=== PATIENT | female | born 1985 | race Caucasian/White ===

== ENCOUNTER 2019-02-16 08:52 | Day surgery (SDC) | payer OTHER ==
[~2019-02-16 08:52] MED LIST: Clindamycin Phosphate in D5W 600 MG in Premix Bag 50 BAG IV ONE; Lactated Ringers 1,000 ML IV SCH; Sodium Chloride 0.9% 10 ML SDV IV PRN; Sodium Chloride 0.9% 10 ML Syringe FLUSH PRN; Sodium Chloride 0.9% 2.5 ML Syringe FLUSH PRN
[2019-02-16] MEDS ORDERED: fentaNYL 100 MCG/2 ML SDV ONE (08:54)
[2019-02-16] MEDS ORDERED: Propofol 200 MG/20 ML SDV ONE ×2 (08:54→13:30)
[2019-02-16] MEDS ORDERED: Midazolam 1 MG/ML 2 ML SDV ONE (08:54)
[2019-02-16] MEDS ORDERED: Lactated Ringers 1,000 ML IV SCH ×2 (09:30→10:15)
[2019-02-16] MEDS ORDERED: Clindamycin Phosphate in D5W 600 MG in Premix Bag 50 BAG IV ONE ×2 (09:30)
--- NOTE | 2019-02-16 10:41 | PCM.PREANE ---
Preanesthetic Assessment - Anesthesia/Transfusion/Family Hx Anesthesia History: Prior Anesthesia Without Reaction Family History of Anesthesia Reaction: No Transfusion History: No Prior Transfusion(s) Intubation History: Unknown - Review of Systems General: No Symptoms Pulmonary: No Symptoms Cardiovascular: No Symptoms Gastrointestinal: No Symptoms Neurological: No Symptoms Other: Reports: None - Physical Assessment O2 Sat by Pulse Oximetry: 94 Respiratory Rate: 16 Vital Signs: Last Vital Signs Temp 37.1 C 02/16/19 10:19 Pulse 75 02/16/19 10:19 Resp 16 02/16/19 10:19 BP 110/60 02/16/19 10:19 Pulse Ox 94 L 02/16/19 10:19 Height: 1.63 m Weight: 84.368 kg ASA Class: 2 Mental Status: Alert & Oriented x3 Airway Class: Mallampati = 2 Dentition: Reports: Normal Dentition Thyro-Mental Finger Breadths: 3 Mouth Opening Finger Breadths: 3 ROM/Head Extension: Full Lungs: Clear to Auscultation, Normal Respiratory Effort Cardiovascular: Regular Rate, Regular Rhythm - Lab Values: Laboratory Last Values Urine HCG, Qual NEGATIVE (NEGATIVE) 02/16/19 09:30 - Allergies Allergies/Adverse Reactions: Allergies Allergy/AdvReac Type Severity Reaction Status Date / Time adhesive tape Allergy Rash Verified 02/13/19 10:41 cephalexin [From Keflex] Allergy Hives Verified 02/13/19 10:41 kiwi Allergy Mouth Sores Verified 02/13/19 10:41 - Blood Blood Available: No - Anesthesia Plan Pre-Op Medication Ordered: None - Acknowledgements Anesthesia Type Planned: MAC Pt an Appropriate Candidate for the Planned Anesthesia: Yes Alternatives and Risks of Anesthesia Discussed w Pt/Guardian: Yes Pt/Guardian Understands and Agrees with Anesthesia Plan: Yes PreAnesthesia Questionnaire HEENT History: Reports: Other (See Below) Other HEENT History: wears glasses 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 Musculoskeletal History: Reports: Back Pain, Chronic, Fracture Other Musculoskeletal History: hx of fx ribs Psychiatric History: Reports: Depression Endocrine/Metabolic History: Reports: Obesity/BMI 30+ - Past Surgical History Female Surgical History: Reports: LEEP, Other (See Below) Other Female Surgeries/Procedures: Exploratory Laparoscopy - SUBSTANCE USE Smoking Status *Q: Current Every Day Smoker (about 1/2 ppd) Tobacco Use Within Last Twelve Months: Cigarettes Recreational Drug Use History: No - HOME MEDS Home Medications: Home Meds Acetaminophen [Tylenol Extra Strength] 1,000 mg PO Q6H PRN 02/13/19 [History] Lysine 1,000 mg PO ASDIRECTED PRN 02/13/19 [History] Noreth-Ethinyl Estradiol/Iron [Generess Fe] 1 tab PO DAILY 02/13/19 [History] Thrive 1 tab PO DAILY 02/13/19 [History] valACYclovir [Valtrex] 1,000 mg PO ASDIRECTED PRN 02/13/19 [History] traMADol [Ultram] 50 mg PO Q6H PRN 02/16/19 [History] - CURRENT (IN HOUSE) MEDS Current Meds: Current Medications Lactated Ringer's (Ringers, Lactated) 1,000 mls @ 125 mls/hr IV ASDIRECTED MIKE Last Admin: 02/16/19 09:50 Dose: 125 mls/hr Lactated Ringer's (Ringers, Lactated) 1,000 mls @ 125 mls/hr IV ASDIRECTED MIKE Sodium Chloride (Saline Flush) 10 ml FLUSH ASDIRECTED PRN PRN Reason: Keep Vein Open Sodium Chloride (Saline Flush) 2.5 ml FLUSH ASDIRECTED PRN PRN Reason: Keep Vein Open Sodium Chloride (Normal Saline) 10 ml IV ASDIRECTED PRN PRN Reason: IV Use Discontinued Medications Fentanyl (Sublimaze) Confirm Administered Dose 100 mcg .ROUTE .STK-MED ONE Stop: 02/16/19 08:55 Clindamycin Phosphate 600 mg/ (Premix) 50 mls @ 100 mls/hr IV ONETIME ONE Stop: 02/15/19 13:23 Lactated Ringer's (Ringers, Lactated) 1,000 mls @ 125 mls/hr IV ASDIRECTED MIKE Lidocaine HCl (Xylocaine-Mpf 1%) Confirm Administered Dose 5 mls @ as directed .ROUTE .STK-MED ONE Stop: 02/16/19 08:56 Clindamycin Phosphate 600 mg/ (Premix) 50 mls @ 100 mls/hr IV ONETIME ONE Stop: 02/16/19 09:59 Last Admin: 02/16/19 09:45 Dose: 100 mls/hr Midazolam HCl (Versed 1 Mg/Ml) Confirm Administered Dose 2 mg .ROUTE .STK-MED ONE Stop: 02/16/19 08:55 Propofol (Diprivan 20 Ml) Confirm Administered Dose 200 mg .ROUTE .STK-MED ONE Stop: 02/16/19 08:55
[2019-02-16] MEDS ORDERED: Bupivacaine 0.5% 10 ML SDV ONE (12:14)
[2019-02-16] MEDS ORDERED: Lidocaine 1% 20 ML MDV ONE (12:15)
[2019-02-16] MEDS ORDERED: Ondansetron 4 MG/2 ML SDV ONE (12:58)
--- NOTE | 2019-02-16 14:00 | PCM.OPNOTE ---
- General Post-Op/Procedure Note Date of Surgery/Procedure: 02/16/19 Operative Procedure(s): excision of right back mass Findings: Superficial mass measuring 2.2 x 1.5 x 1 cm. Deep mass measuring 2.75 x 2 x 1 cm. Pre Op Diagnosis: lipoma Post-Op Diagnosis: lipoma Anesthesia Technique: GINA Primary Surgeon: Tara Renee Secondary Surgeon: Renetta Fitzgerald Fluid Replacement, Intraop: 1,200 EBL in mLs: 5 Condition: Good
--- NOTE | 2019-02-16 14:11 | PCM.POSTAN ---
POST ANESTHESIA ASSESSMENT - MENTAL STATUS Mental Status: Alert, Oriented - RESPIRATORY Respiratory Status: Respiratory Rate WNL, Airway Patent, O2 Saturation Stable - CARDIOVASCULAR CV Status: Pulse Rate WNL, Blood Pressure Stable - GASTROINTESTINAL GI Status: No Symptoms - PAIN Pain Score: 0 - POST OP HYDRATION Hydration Status: Hypovolemic - OBSERVATIONS Free Text/Narrative:: no anesthesia problems,patient skipped recovery room stage of postoperative care
--- NOTE | 2019-02-16 18:35 | OR ---
SURGEON: SANDHYA REIS MD DATE OF PROCEDURE: 02/16/2019 PREOPERATIVE DIAGNOSIS: Subcutaneous mass of the right mid back. POSTOPERATIVE DIAGNOSIS: Subcutaneous mass of the right mid back. PROCEDURE PERFORMED: Excision of right mid back mass. DIRECTOR STYLE: RONAL Garcias student. ANESTHESIA: MAC, local. FLUIDS: 1200 mL of crystalloid. ESTIMATED BLOOD LOSS: 5 mL. FINDINGS: A superficial subcutaneous mass measuring 2.2 x 1.5 x 1 cm, deeper mass at the same site measuring 2.75 x 2 x 1 cm. Both appeared fatty. COMPLICATIONS: None. INDICATIONS: The patient is a 34-year-old female who presents with a painful right mid back mass. She fell several months ago breaking a rib. Ever since then, she has felt a mass in this area that is causing her significant pain. An ultrasound was performed that showed a possible lipoma at the area. A decision was made to perform a surgical excision. The patient and I discussed the procedure, expected perioperative course, and risks including bleeding or infection. In the preoperative area, I met the patient, and the mass was identified by her and marked by me. She verbalized understanding of the procedure and agreed to proceed. PROCEDURE IN DETAIL: The patient was brought into the OR and placed on the OR table in supine position. A time-out was completed verifying the patient's name, age, date of , allergies, and procedure to be performed. Monitored anesthesia care was induced. The patient was then placed into a left lateral decubitus position. All bony prominences were appropriately padded, and she was secured to the table. After adequate anesthesia was achieved, I anesthetized the area overlying her mass with 1% lidocaine plain as well as 0.5% Marcaine plain. A 4 cm incision was made overlying the indicated area. Cautery was used to dissect down to the level of the subcutaneous fat. I palpated a firm fatty appearing structure. It did not have the classic appearance of a lipoma, but was firmer than the surrounding subcutaneous fat. I grasped it with an Allis and used electrocautery to dissect around it. I undermined the lesion and passed it off onto the back field. Upon palpating the area; however, I can feel an area of deeper subcutaneous fat that felt similar in nature. Using another Allis, I grasped this and elevated from the underlying muscular fascia. I used electrocautery to separate it from the surrounding subcutaneous fat and tissues. When I was completed, all the subcutaneous fat overlying the indicated area was removed down to the level of the muscle fascia. I palpated my wound edges and felt normal subcutaneous fat. Upon measuring the masses on the back, the more superficial fat measured 2.2 x 1.5 x 1 cm in size. The deeper mass measured 2.75 x 2 x 1 cm in size. Electrocautery was used to achieve hemostasis. The wound was irrigated with normal saline. I closed the wound with interrupted 3-0 Vicryl in layers along the subcutaneous fat layer to provide a good closure without a significant defect. I then closed the skin with a running 4-0 Monocryl suture. Steri-Strips and sterile dressings were applied. The patient tolerated procedure well and was taken to PACU in stable condition. MACKENZIE BREWER /[id number]
== END 2019-02-16 14:40 | disposition home or self-care (01) ==
LOC: MW.SDS 08:52
PROVIDERS: ATTEND Surgery
DX: D17.1 Benign lipomatous neoplasm of skin and subcutaneous tissue of trunk (principal); D17.9 Benign lipomatous neoplasm, unspecified; E66.9 Obesity, unspecified; Z68.31 Body mass index [BMI] 31.0-31.9, adult; F17.210 Nicotine dependence, cigarettes, uncomplicated; Z79.899 Other long term (current) drug therapy; Z91.040 Latex allergy status; Z88.1 Allergy status to other antibiotic agents; Z91.018 Allergy to other foods; Z91.048 Other nonmedicinal substance allergy status
CPT/HCPCS: 21930; 21932; 81025; J2001; J2250; J2405; J2704; J3010; J3490; J7120; 88304